=== PATIENT | female | born 1945 | race Caucasian/White ===

== ENCOUNTER 2017-12-05 13:07 | Outpatient (CLI) | payer MEDICARE, OTHER ==
--- NOTE | 2017-12-05 14:12 | MMO ---
BILATERAL DIGITAL SCREENING MAMMOGRAMS: Date: 12/05/17 HISTORY: 72-year-old female presents for digital screening mammogram. COMPARISON: 11/16/16, 01/20/15. FINDINGS: This patient's mammogram was interpreted with the assistance of computer-aided detection. Scattered areas of fibroglandular density are noted bilaterally. There are stable typically benign ca lcifications in both breasts. No direct or indirect evidence of malignancy. IMPRESSION: BIRADS 2: Benign Finding(s) Continue routine screening. POS: AB
== END 2017-12-05 13:08 | disposition home or self-care (01) ==
LOC: SCSMAMMO 13:07
PROVIDERS: ATTEND Family Medicine
DX: Z12.31 Encounter for screening mammogram for malignant neoplasm of breast (principal)
CPT/HCPCS: 77067

== ENCOUNTER 2021-03-03 15:38 | Outpatient (CLI) | payer MEDICARE, OTHER | END 2021-03-03 15:39 | disposition home or self-care (01) | LOC: SCSRAD 15:38 | PROVIDERS: ATTEND Family Medicine | DX: M47.26 Other spondylosis with radiculopathy, lumbar region (principal); Z98.890 Other specified postprocedural states | CPT/HCPCS: 72100 ==